=== PATIENT | male | born 1950 | race Two or more races ===

== ENCOUNTER 2020-08-07 12:55 | Inpatient (IN) | payer OTHER ==
[~2020-08-07] VITALS: Ht 157.5 cm; Wt 95.3 kg
[2020-08-07 13:55] LABS: Basophils # (auto) 0 10 ^3/uL (0-0.2); Basophils % (auto) 0.2 % (0.0-2.0); Eosinophils # (auto) 0 10 ^3/uL (0-0.8); Hematocrit 42.6 % (41.0-53.0); Hemoglobin 14.5 g/dL (13.5-17.5); Lymphocytes # (auto) 0.4 10 ^3/uL (0.4-5.4); Lymphocytes % (auto) 4.4 % (10.0-50.0); Mean Corpuscular Hemoglobin 29.5 pg (28.0-32.0); Mean Corpuscular Volume 86.8 fL (80.0-100.0); Monocytes # (auto) 0.6 10 ^3/uL (0-1.3); Monocytes % (auto) 6.7 % (0.0-12.0); Neutrophils # (auto) 7.8 10 ^3/uL (1.6-8.6); Neutrophils % (auto) 88.7 % (37.0-80.0); Platelet Count (auto) 153 10^3/uL (140-450); Red Blood Cells 4.91 10^6/uL (4.5-5.90); Red Cell Distribution Width 13.5 % (11.8-14.3); White Blood Cell 8.8 10^3/uL (4.4-10.8)
[2020-08-07 14:01] LABS: INR 1.08 (0.9-1.15); Partial Thromboplastin Time 38.4 sec (23.0-31.2)
[2020-08-07 14:09] LABS: Lactic Acid w/Reflex 6.1 mmol/L (0.4-2.0)
[2020-08-07 14:34] LABS: Albumin 3.5 g/dL (3.4-5.0); Calcium 7.8 mg/dL (8.5-10.1); Potassium 3.2 mmol/L (3.5-5.1)
[2020-08-07 14:42] LABS: BUN/Creatinine Ratio 7.2; Bilirubin, Total 0.6 mg/dL (0.2-1.0); CRP High Sensitivity 5.68 mg/dL (< 0.3)
[2020-08-07] MEDS ORDERED: ACETAMINOPHEN 500 MG TAB PO ONE (15:00)
[2020-08-07] MEDS ORDERED: ONDANSETRON HCL 4 MG/2 ML VIAL IV PRN (17:45)
[2020-08-07] MEDS ORDERED: MORPHINE SULF INJ 2 MG/ML SYRINGE 1ML IV PRN (17:45)
[2020-08-07] MEDS ORDERED: LABETALOL HCL 5 MG/ML 4ML SYRINGE IV PRN (17:45)
[2020-08-07] MEDS ORDERED: LORazepam 0.5 MG TAB PO PRN (17:45)
[2020-08-07] MEDS ORDERED: SODIUM CHLORIDE 0.9% 3,000 ML IV ONE (17:45)
[2020-08-07] MEDS ORDERED: DOCUSATE CALCIUM 240 MG CAP PO PRN (17:45)
[2020-08-07] MEDS ORDERED: ALBUTEROL SULF HFA 90MCG INH 200DOSE IN PRN (17:45)
[2020-08-07] MEDS ORDERED: NITROGLYCERIN 0.4 MG SL TAB SL PRN (17:45)
[2020-08-07] MEDS ORDERED: ACETAMINOPHEN 500 MG TAB PO PRN ×2 (17:45)
[2020-08-07] MEDS ORDERED: VANCOMYCIN PER PHARMACY 0 MG IV SCH (17:45)
[2020-08-07] MEDS: POTASSIUM CHL 20MEQ/100ML 100 ML IV SCH ×2 (20:00→23:25)
[2020-08-07] MEDS: PIPERACILLIN-TAZOB 3.375GM 100 ML IV SCH (20:00)
[2020-08-07] MEDS: BUDESONIDE (INHALATION) 180 MCG IH IN SCH (22:00)
[2020-08-07] MEDS: ENOXAPARIN SOD 40 MG/0.4 ML SYRINGE SC SCH (22:17)
[2020-08-07 22:52] LABS: Urine Bacteria NONE SEEN /hpf (None Seen); Urine Blood 2+ /uL (Negative); Urine Mucus FEW (None Seen); Urine Specific Gravity 1.018 (1.001-1.035); Urine WBC 95 /hpf (0 - 3); Urine WBC Clumps PRESENT /hpf (None Seen)
[2020-08-07] MEDS ORDERED: VANCOMYCIN 1GM/250ML 250 ML IV ONE (23:00)
[2020-08-08] MEDS: PIPERACILLIN-TAZOB 3.375GM 100 ML IV SCH ×4 (06:09→17:31)
[2020-08-08] MEDS: PANTOPRAZOLE 40 MG TAB PO SCH (09:42)
[2020-08-08] MEDS: ASCORBIC ACID 1,000 MG TAB PO SCH (09:43)
[2020-08-08] MEDS: ENOXAPARIN SOD 40 MG/0.4 ML SYRINGE SC SCH ×2 (09:43→22:00)
[2020-08-08] MEDS: CHOLECALCIFEROL (VITD3) 2,000 UNIT CAP PO SCH (09:43)
[2020-08-08] MEDS: BUDESONIDE (INHALATION) 180 MCG IH IN SCH ×2 (10:00→18:48)
[2020-08-08 10:17] LABS: Basophils # (auto) 0 10 ^3/uL (0-0.2); Basophils % (auto) 0.1 % (0.0-2.0); Eosinophils # (auto) 0 10 ^3/uL (0-0.8); Hematocrit 43.9 % (41.0-53.0); Hemoglobin 14.6 g/dL (13.5-17.5); Lymphocytes # (auto) 0.9 10 ^3/uL (0.4-5.4); Lymphocytes % (auto) 4.7 % (10.0-50.0); Mean Corpuscular Hemoglobin 28.9 pg (28.0-32.0); Mean Corpuscular Hgb Conc. 33.2 g/dL (32.0-36.0); Mean Corpuscular Volume 87.2 fL (80.0-100.0); Monocytes # (auto) 0.9 10 ^3/uL (0-1.3); Monocytes % (auto) 4.7 % (0.0-12.0); Neutrophils % (auto) 90.5 % (37.0-80.0); Platelet Count (auto) 162 10^3/uL (140-450); Red Blood Cells 5.03 10^6/uL (4.5-5.90); Red Cell Distribution Width 13.6 % (11.8-14.3); White Blood Cell 18.9 10^3/uL (4.4-10.8)
[2020-08-08 10:36] LABS: Albumin 2.7 g/dL (3.4-5.0); Calcium 7.7 mg/dL (8.5-10.1); Magnesium 2.1 mg/dL (1.6-2.6); Potassium 3.6 mmol/L (3.5-5.1)
[2020-08-08 10:39] LABS: BUN/Creatinine Ratio 7.3; Bilirubin, Total 0.6 mg/dL (0.2-1.0); Total Protein 6.8 g/dL (6.4-8.2)
[2020-08-08] MEDS: VANCOMYCIN 750mg/250ml 250 ML IV SCH ×2 (11:17→22:43)
[2020-08-09] MEDS: PIPERACILLIN-TAZOB 3.375GM 100 ML IV SCH ×4 (06:00→16:19)
[2020-08-09] MEDS: BUDESONIDE (INHALATION) 180 MCG IH IN SCH (06:40)
[2020-08-09] MEDS: CHOLECALCIFEROL (VITD3) 2,000 UNIT CAP PO SCH (09:42)
[2020-08-09] MEDS: PANTOPRAZOLE 40 MG TAB PO SCH (09:42)
[2020-08-09] MEDS: ASCORBIC ACID 1,000 MG TAB PO SCH (09:42)
[2020-08-09] MEDS: ENOXAPARIN SOD 40 MG/0.4 ML SYRINGE SC SCH (09:42)
[2020-08-09] MEDS: VANCOMYCIN 750mg/250ml 250 ML IV SCH (11:00)
[2020-08-09 12:00] VITALS: BP 113/62
[2020-08-09] MEDS ORDERED: LOPERAMIDE HCL 2 MG CAP PO ONE (17:15)
[2020-08-09] MEDS ORDERED: ALBUAER3 IN (17:35)
[2020-08-09] MEDS ORDERED: LEVO-28 PO (17:35)
== END 2020-08-09 21:15 | disposition home or self-care (01) | DRG 871 ==
LOC: EDBD 12:55 → ER 12:55 → TELE 12:56 → OVERFLOW 08-09 19:20 → TELE 08-09 19:21
PROVIDERS: ADMIT Family Medicine; ATTEND Hospitalist
DX: A41.89 Other specified sepsis (principal); U07.1 COVID-19; G93.41 Metabolic encephalopathy; J12.82 Pneumonia due to coronavirus disease 2019; E87.1 Hypo-osmolality and hyponatremia; J98.11 Atelectasis; E87.6 Hypokalemia; E66.9 Obesity, unspecified; R06.03 Acute respiratory distress; F03.90 Unspecified dementia, unspecified severity, without behavioral disturbance, psychotic disturbance, mood disturbance, and anxiety; Z68.30 Body mass index [BMI] 30.0-30.9, adult
CPT/HCPCS: 36415; 51702; 70450; 71045; 80053; 80202; 80320; 81001; 82565; 82728; 83605; 83615; 83735; 84443; 84484; 85025; 85379; 85610; 85730; 86141; 87040; 87086; 87088; 87186; 87426; 93005; 96360; A4565; G0378; J2543; J3480

== ENCOUNTER 2020-11-04 14:50 | Inpatient (IN) | payer OTHER ==
[~2020-11-04] VITALS: Ht 157.5 cm; Wt 86.0 kg
[~2020-11-04 14:50] MED LIST: ALBUAER3 IN; LEVO-28 PO
[2020-11-04] MEDS ORDERED: ACETAMINOPHEN 325 MG TAB PO ONE (15:30)
[2020-11-04] MEDS ORDERED: SODIUM CHLORIDE 0.9% 1,000 ML IV ONE ×3 (15:30→18:15)
[2020-11-04] MEDS ORDERED: cefTRIAXone 1GM/50ML D5W 50 ML IV ONE (15:30)
[2020-11-04 15:46] LABS: Urine Bacteria NONE SEEN /hpf (None Seen); Urine Blood 1+ /uL (Negative); Urine Mucus FEW (None Seen); Urine Specific Gravity 1.028 (1.001-1.035); Urine WBC 358 /hpf (0 - 3)
[2020-11-04 16:12] LABS: Basophils # (auto) 0.1 10 ^3/uL (0-0.2); Basophils % (auto) 0.3 % (0.0-2.0); Eosinophils # (auto) 0 10 ^3/uL (0-0.8); Hematocrit 41.9 % (41.0-53.0); Lymphocytes # (auto) 0.7 10 ^3/uL (0.4-5.4); Lymphocytes % (auto) 3.7 % (10.0-50.0); Mean Corpuscular Hemoglobin 29.5 pg (28.0-32.0); Mean Corpuscular Hgb Conc. 33.5 g/dL (32.0-36.0); Mean Corpuscular Volume 88.1 fL (80.0-100.0); Monocytes # (auto) 0.7 10 ^3/uL (0-1.3); Monocytes % (auto) 3.6 % (0.0-12.0); Neutrophils # (auto) 16.8 10 ^3/uL (1.6-8.6); Neutrophils % (auto) 92.4 % (37.0-80.0); Platelet Count (auto) 159 10^3/uL (140-450); Red Blood Cells 4.76 10^6/uL (4.5-5.90); Red Cell Distribution Width 14.3 % (11.8-14.3); White Blood Cell 18.2 10^3/uL (4.4-10.8)
[2020-11-04 16:32] LABS: Albumin 3.7 g/dL (3.4-5.0); Calcium 9.2 mg/dL (8.5-10.1); Potassium 5.1 mmol/L (3.5-5.1)
[2020-11-04 16:37] LABS: BUN/Creatinine Ratio 13.7; Bilirubin, Total 0.9 mg/dL (0.2-1.0); Total Protein 7.7 g/dL (6.4-8.2)
[2020-11-04 16:41] LABS: Lactic Acid w/Reflex 2.6 mmol/L (0.4-2.0)
[2020-11-04 16:57] LABS: INR 1.11 (0.9-1.15); Partial Thromboplastin Time 24.2 sec (23.0-31.2)
[2020-11-04] MEDS ORDERED: MORPHINE SULF INJ 2 MG/ML SYRINGE 1ML IV PRN ×3 (17:30)
[2020-11-04] MEDS ORDERED: ALUM & MAG HYDROX-SIMETH LIQ(MAALOX) 30 ML PO PRN (17:30)
[2020-11-04] MEDS ORDERED: MEROPENEM 1GM IVPB 100 ML IV ONE (17:30)
[2020-11-04] MEDS ORDERED: LORazepam 0.5 MG TAB PO PRN (17:30)
[2020-11-04] MEDS ORDERED: DOCUSATE SOD 100 MG CAP PO PRN (17:30)
[2020-11-04] MEDS ORDERED: ONDANSETRON HCL 4 MG/2 ML VIAL IV PRN (17:30)
[2020-11-04] MEDS ORDERED: ACETAMINOPHEN 325 MG TAB PO PRN (17:30)
[2020-11-04] MEDS ORDERED: NITROGLYCERIN 0.4 MG SL TAB SL PRN ×2 (17:30)
[2020-11-04] MEDS ORDERED: SODIUM CHLORIDE 0.9% 1,000 ML IV SCH (17:30)
[2020-11-04] MEDS ORDERED: HYDROcodone-ACET 5/325MG TAB PO PRN (17:30)
[2020-11-04] MEDS ORDERED: VANCOMYCIN PER PHARMACY 1,000 MG IV SCH (17:30)
[2020-11-04] MEDS ORDERED: ACETAMINOPHEN 650 MG RECT SUPP PR PRN (17:30)
[2020-11-04] MEDS ORDERED: MORPHINE SULFATE 4 MG/ML SYR/VIAL IV PRN (17:30)
[2020-11-04] MEDS ORDERED: LORazepam 2MG/ML-1ML VIAL IV PRN (17:30)
[2020-11-04] MEDS ORDERED: LACTATED RINGER'S 1,000 ML IV ONE (17:30)
[2020-11-04] MEDS ORDERED: DONE1TAB88 PO (17:35)
[2020-11-04] MEDS ORDERED: MULT-940 PO (17:35)
[2020-11-04 17:57] LABS: Amphetamine Screen, Urine NEGATIVE (NEGATIVE); Barbiturate Scree,Urine NEGATIVE (NEGATIVE); Benzodiazephine Screen, Urine NEGATIVE (NEGATIVE); Cannabinoid Screen, Urine NEGATIVE (NEGATIVE); Cocaine Screen, Urine NEGATIVE (NEGATIVE); Opiate Scree,Urine NEGATIVE (NEGATIVE); Phencyclidine Screen, Urine NEGATIVE (NEGATIVE)
[2020-11-04] MEDS ORDERED: TIMO0.5S66 EACHEYE (18:04)
[2020-11-04] MEDS ORDERED: LATA0.0019 EACHEYE (18:04)
[2020-11-04 18:06] LABS: Cholesterol 138 mg/dL (< 200); HDL Cholesterol 61 mg/dL (40-59); Triglycerides 78 mg/dL (< 150)
[2020-11-04] MEDS ORDERED: [UNRECOGNIZED DRUG - CODE] PO (18:07)
[2020-11-04] MEDS ORDERED: ORALSOL57 PO (18:09)
[2020-11-04] MEDS ORDERED: ACE3T PO (18:10)
[2020-11-04] MEDS: HYDROCORTISONE SOD SUCC 100 MG/2ML INJ VIAL IV SCH ×2 (18:27→23:19)
[2020-11-04] MEDS: SODIUM CHLORIDE 0.9% 1,000 ML IV SCH (18:31)
[2020-11-04] MEDS ORDERED: ENOXAPARIN SOD 100 MG/1 ML SYRINGE SC ONE (19:15)
[2020-11-04] MEDS ORDERED: IOHEXOL 350 MG/ML 100ML IJ ONE (19:18)
[2020-11-04] MEDS ORDERED: ALBUTEROL SULF 2.5 MG/0.5ML(0.5%) NEB SOLN NEB PRN (19:30)
[2020-11-04] MEDS ORDERED: CALCIUM CHL 100MG/ML 500 MG in D5W 5% 100 ML IV ONE (19:30)
[2020-11-04] MEDS ORDERED: METOPROLOL TARTRATE 1MG/1ML-5ML VIAL IV PRN (19:30)
[2020-11-04] MEDS ORDERED: ALBUTEROL SULF 2.5 MG/0.5ML(0.5%) NEB SOLN NEB ONE (19:30)
[2020-11-04 19:54] VITALS: BP 106/48
[2020-11-04] MEDS: TIMOLOL MAL 0.5% OPTH(EYE) SOL 5ML EACHEYE SCH (21:39)
[2020-11-04] MEDS ORDERED: IPRATROPIUM BROM 0.5 MG/2.5ML INH SOL NEB SCH (22:00)
[2020-11-04] MEDS: LATANOPROST 0.005 % OPTH(EYE) SOL 2.5ML EACHEYE SCH (22:06)
[2020-11-04] MEDS: FAMOTIDINE (10MG/ML) 2ML VL IV SCH (22:08)
[2020-11-04] MEDS ORDERED: IPRATROPIUM BROM 0.5 MG/2.5ML INH SOL NEB PRN (22:15)
[2020-11-04 22:17] VITALS: BP 118/61
[2020-11-04] MEDS: VANCOMYCIN 1GM/250ML 250 ML IV SCH (22:44)
[2020-11-04] MEDS: MEROPENEM 1GM IVPB 100 ML IV SCH (23:19)
[2020-11-04 23:39] LABS: BUN/Creatinine Ratio 13.3; Calcium 8.5 mg/dL (8.5-10.1); Potassium 3.5 mmol/L (3.5-5.1)
[2020-11-05] MEDS: SODIUM CHLORIDE 0.9% 1,000 ML IV SCH ×2 (04:17→14:29)
[2020-11-05 05:00] VITALS: BP 111/59
[2020-11-05] MEDS: MEROPENEM 1GM IVPB 100 ML IV SCH ×3 (05:40→22:02)
[2020-11-05] MEDS: HYDROCORTISONE SOD SUCC 100 MG/2ML INJ VIAL IV SCH ×2 (05:40→12:24)
[2020-11-05 07:42] LABS: Basophils # (auto) 0 10 ^3/uL (0-0.2); Basophils % (auto) 0.1 % (0.0-2.0); Eosinophils # (auto) 0 10 ^3/uL (0-0.8); Hematocrit 39.1 % (41.0-53.0); Hemoglobin 12.9 g/dL (13.5-17.5); Lymphocytes # (auto) 0.8 10 ^3/uL (0.4-5.4); Lymphocytes % (auto) 5.5 % (10.0-50.0); Mean Corpuscular Hemoglobin 28.8 pg (28.0-32.0); Mean Corpuscular Hgb Conc. 32.8 g/dL (32.0-36.0); Mean Corpuscular Volume 87.8 fL (80.0-100.0); Monocytes # (auto) 0.4 10 ^3/uL (0-1.3); Monocytes % (auto) 2.7 % (0.0-12.0); Neutrophils % (auto) 91.7 % (37.0-80.0); Platelet Count (auto) 140 10^3/uL (140-450); Red Blood Cells 4.45 10^6/uL (4.5-5.90); Red Cell Distribution Width 14.3 % (11.8-14.3); White Blood Cell 15.2 10^3/uL (4.4-10.8)
[2020-11-05 07:55] LABS: INR 1.08 (0.9-1.15); Partial Thromboplastin Time 36.9 sec (23.0-31.2)
[2020-11-05] MEDS: VANCOMYCIN 1GM/250ML 250 ML IV SCH (08:00)
[2020-11-05 08:03] LABS: Potassium 3.6 mmol/L (3.5-5.1)
[2020-11-05] MEDS ORDERED: IOHEXOL 350 MG/ML 100ML IJ ONE (08:03)
[2020-11-05 08:17] LABS: Albumin 3.1 g/dL (3.4-5.0); BUN/Creatinine Ratio 17.6; Bilirubin, Total 0.7 mg/dL (0.2-1.0); CRP High Sensitivity 8.46 mg/dL (< 0.3); Calcium 8.4 mg/dL (8.5-10.1); Magnesium 2.3 mg/dL (1.6-2.6); Phosphorus 2.8 mg/dL (2.5-4.90); Total Protein 6.4 g/dL (6.4-8.2)
[2020-11-05 09:03] VITALS: BP 113/65
[2020-11-05] MEDS: TIMOLOL MAL 0.5% OPTH(EYE) SOL 5ML EACHEYE SCH ×2 (09:18→22:20)
[2020-11-05] MEDS: ENOXAPARIN SOD 40 MG/0.4 ML SYRINGE SC SCH (09:19)
[2020-11-05] MEDS: FAMOTIDINE (10MG/ML) 2ML VL IV SCH ×2 (09:19→22:02)
[2020-11-05 12:23] LABS: LDL Cholesterol 78 mg/dL (< 100)
[2020-11-05 13:00] VITALS: BP 109/60
[2020-11-05 16:56] VITALS: BP 126/72
[2020-11-05 22:00] VITALS: BP 112/69
[2020-11-05] MEDS: LATANOPROST 0.005 % OPTH(EYE) SOL 2.5ML EACHEYE SCH (22:19)
[2020-11-06] MEDS: SODIUM CHLORIDE 0.9% 1,000 ML IV SCH ×3 (00:15→20:15)
[2020-11-06 05:00] VITALS: BP 125/62
[2020-11-06] MEDS: MEROPENEM 1GM IVPB 100 ML IV SCH ×3 (06:01→21:28)
[2020-11-06 07:06] LABS: RPR Non Reactive (Non Reactive)
[2020-11-06 09:00] VITALS: BP 141/79
[2020-11-06] MEDS: TIMOLOL MAL 0.5% OPTH(EYE) SOL 5ML EACHEYE SCH ×2 (09:27→21:30)
[2020-11-06] MEDS: FAMOTIDINE (10MG/ML) 2ML VL IV SCH ×2 (09:27→21:29)
[2020-11-06] MEDS: ENOXAPARIN SOD 40 MG/0.4 ML SYRINGE SC SCH (09:28)
[2020-11-06] MEDS ORDERED: DexAMETHasone SOD PHOS 10MG/1ML VIAL INJ IV SCH (10:00)
[2020-11-06 13:00] VITALS: BP 120/70
[2020-11-06 17:00] VITALS: BP 128/70
[2020-11-06] MEDS: LATANOPROST 0.005 % OPTH(EYE) SOL 2.5ML EACHEYE SCH (21:30)
[2020-11-06 22:00] VITALS: BP 132/71
[2020-11-07 05:00] VITALS: BP 141/83
[2020-11-07] MEDS: SODIUM CHLORIDE 0.9% 1,000 ML IV SCH ×2 (05:41→16:51)
[2020-11-07] MEDS: MEROPENEM 1GM IVPB 100 ML IV SCH ×2 (05:41→14:18)
[2020-11-07 08:32] VITALS: BP 121/67
[2020-11-07] MEDS: ENOXAPARIN SOD 40 MG/0.4 ML SYRINGE SC SCH (09:12)
[2020-11-07] MEDS: FAMOTIDINE (10MG/ML) 2ML VL IV SCH (09:12)
[2020-11-07] MEDS: TIMOLOL MAL 0.5% OPTH(EYE) SOL 5ML EACHEYE SCH (11:48)
[2020-11-07 12:32] VITALS: BP 129/69
[2020-11-07] MEDS ORDERED: CIP500T PO (14:10)
[2020-11-07 16:31] VITALS: BP 133/73
== END 2020-11-07 20:45 | disposition home health service (06) | DRG 871 ==
LOC: ER 14:50 → TELE 17:16 → TELE-CENTR 21:35 → TELE-EAST 11-05 03:50
PROVIDERS: ADMIT Hospitalist; ATTEND Internal Medicine
DX: A41.89 Other specified sepsis (principal); J12.82 Pneumonia due to coronavirus disease 2019; U07.1 COVID-19; N39.0 Urinary tract infection, site not specified; J98.11 Atelectasis; A41.52 Sepsis due to Pseudomonas; K80.20 Calculus of gallbladder without cholecystitis without obstruction; I10 Essential (primary) hypertension; H40.9 Unspecified glaucoma; F03.90 Unspecified dementia, unspecified severity, without behavioral disturbance, psychotic disturbance, mood disturbance, and anxiety; E66.9 Obesity, unspecified; N40.1 Benign prostatic hyperplasia with lower urinary tract symptoms; Z83.3 Family history of diabetes mellitus; Z87.820 Personal history of traumatic brain injury; Z87.828 Personal history of other (healed) physical injury and trauma; R65.20 Severe sepsis without septic shock; R74.01 Elevation of levels of liver transaminase levels; Z68.34 Body mass index [BMI] 34.0-34.9, adult; Z86.16 Personal history of COVID-19
CPT/HCPCS: 36415; 36600; 70450; 71045; 71260; 74176; 74177; 80048; 80053; 80061; 80307; 81001; 82085; 82105; 82306; 82378; 82550; 82565; 82728; 82805; 83036; 83605; 83615; 83735; 83880; 84100; 84154; 84443; 84484; 84550; 84702; 85025; 85379; 85610; 85652; 85730; 86038; 86141; 86160; 86200; 86225; 86300; 86301; 86304; 86431; 86592; 86850; 86900; 86901; 87040; 87077; 87086; 87186; 87426; 93005; 93306; 93970; 96365; 96367; G0378; J0696; J2185; J3490; J7060

== ENCOUNTER 2022-08-31 08:08 | Day surgery (SDC) | payer OTHER ==
[2022-08-31] VITALS (8 sets, daily range): BP systolic 100–132; BP diastolic 49–72
[~2022-08-31] VITALS: Ht 157.5 cm; Wt 90.7 kg
[~2022-08-31 08:08] MED LIST changes: -ALBUAER3 IN; +DONE1TAB88 PO; +LATA0.0019 EACHEYE; -LEVO-28 PO; +MULT-940 PO; +ORALSOL57 PO; +TIMO0.5S66 EACHEYE; +[UNRECOGNIZED DRUG - CODE] PO
[2022-08-31] MEDS ORDERED: VERAPAMIL 2.5MG/ML INJ 2ML VIAL IV ONE (08:37)
[2022-08-31] MEDS ORDERED: HEPARIN SODIUM (PORCINE) 5000 UNITS/ML 1ML VIAL ONE (08:37)
[2022-08-31] MEDS ORDERED: LIDOCAINE 2%HCL (LOCAL ANESTH.) INJ 20ML MDV ONE ×2 (08:37→16:31)
[2022-08-31] MEDS ORDERED: fentaNYL CITRATE 100 MCG/2 ML VL ONE (08:37)
[2022-08-31] MEDS ORDERED: ANGIOMAX 250 MG VIAL IV ONE (08:37)
[2022-08-31] MEDS ORDERED: MIDAZOLAM HCL 2MG/2ML 2ml VIAL (1mg/ml) ONE (08:38)
[2022-08-31] MEDS ORDERED: SODIUM CHL 0.9% 0 ML ONE (08:38)
[2022-08-31] MEDS ORDERED: IODIXANOL 320MG/ML 100ML BTL IV ONE (09:09)
[2022-09-01] MEDS ORDERED: PRED20TA2 PO (12:15)
[2022-09-01] MEDS ORDERED: TRIA0.02 TOP (12:15)
== END 2022-08-31 11:55 | disposition home or self-care (01) ==
LOC: CATH 08:08
PROVIDERS: ATTEND Internal Medicine Cardiovascular Disease
DX: I25.10 Atherosclerotic heart disease of native coronary artery without angina pectoris (principal); R94.39 Abnormal result of other cardiovascular function study; R07.89 Other chest pain; E66.9 Obesity, unspecified; E55.9 Vitamin D deficiency, unspecified; I47.1 Supraventricular tachycardia; Z86.73 Personal history of transient ischemic attack (TIA), and cerebral infarction without residual deficits; Z20.822 Contact with and (suspected) exposure to COVID-19
CPT/HCPCS: 93458; C1769; C1887; C1894; J1644; J2250; J3010; J7030; Q9967; U0003; 99152

== ENCOUNTER 2022-09-01 10:29 | Emergency (ER) | payer OTHER ==
[~2022-09-01] VITALS: Ht 157.5 cm; Wt 92.3 kg
[2022-09-01 11:03] VITALS: BP 133/71
[2022-09-01] MEDS ORDERED: methylPREDNISolone SOD SUCC 125 MG/2 ML VL IM ONE (11:15)
[2022-09-01] MEDS ORDERED: EPINEPHrine HCL 1 MG/1 ML AMP SC ONE (11:15)
[2022-09-01] MEDS ORDERED: TRIA0.02 TOP (12:15)
[2022-09-01] MEDS ORDERED: PRED20TA2 PO (12:15)
== END 2022-09-01 12:20 | disposition home or self-care (01) ==
LOC: ER 10:29
DX: T78.40XA Allergy, unspecified, initial encounter (principal); Z79.899 Other long term (current) drug therapy; Y92.89 Other specified places as the place of occurrence of the external cause
CPT/HCPCS: 96372; 99283; J0171; J2930